=== PATIENT | female | born 1970 | race Caucasian/White ===

== ENCOUNTER → 2020-06-20 | Outpatient (CLI) | payer OTHER ==
[~2020-06-20] MED LIST: CPR500T PO; OXYC-109 PO
--- NOTE | 2020-06-20 18:01 | Diagnostic Imaging Report ---
EXAM: Thoracic spine radiograph EXAM DATE: 06/20/2000 COMPARISON: None. HISTORY: Mid and right-sided back pain. TECHNIQUE: 3 views of the thoracic spine with AP, lateral and swimmer's views. FINDINGS: There is no acute fracture, dislocation, or destructive osseous process seen. There is multilevel thoracic spondylosis. Disc heights and vertebral body heights are preserved. No significant facet hypertrophy is seen. Visualized lungs are clear. IMPRESSION: Degenerative changes of the thoracic spine without compression fracture or acute osseous abnormality. Dictated by: Dictated on workstation # [id number]
== END ==
LOC: RAD FS 17:02
PROVIDERS: ATTEND Emergency Medicine
DX: M47.814 Spondylosis without myelopathy or radiculopathy, thoracic region (principal)
CPT/HCPCS: 72072